=== PATIENT | male | born 1960 | race Native Hawaiian/Other Pacific Islander ===

== ENCOUNTER 2016-06-07 17:15 | Outpatient (CLI) | payer OTHER ==
[~2016-06-07 17:15] MED LIST: ASPIRIN LOW STR81 MG PO; LEVO0.1519 PO; LOSA50TA PO; NEURONTIN 100M100 MG PO; ROXICODONE15 M1 PO; SYNTHROID175 MCG PO; TRICOR145 M1 PO
[2016-06-07 17:43] LABS: PLATELET COUNT 270 K/uL (142-355)
[2016-06-07 18:25] LABS: POTASSIUM 4.1 mmol/L (3.6-5.2); SODIUM 137 mmol/L (136-145)
== END 2016-06-07 23:07 | disposition home or self-care (01) ==
LOC: LABW 17:15
PROVIDERS: Family Medicine
DX: R53.83 Other fatigue (principal); I10 Essential (primary) hypertension; E03.8 Other specified hypothyroidism; E55.9 Vitamin D deficiency, unspecified; R07.89 Other chest pain
CPT/HCPCS: 80053; 81000; 82306; 82607; 84403; 84443; 85027; 93005

== ENCOUNTER 2016-06-08 13:26 | Outpatient (CLI) | payer OTHER | END 2016-06-08 15:26 | disposition home or self-care (01) | LOC: CT 13:26 | DX: I26.99 Other pulmonary embolism without acute cor pulmonale (principal) | CPT/HCPCS: Q9963 ==

== ENCOUNTER 2016-06-22 11:18 | Outpatient (CLI) | payer OTHER | END 2016-06-22 19:22 | disposition home or self-care (01) | LOC: RESP 11:18 | DX: R05 Cough (principal) | CPT/HCPCS: 94640; 94664 ==

== ENCOUNTER 2016-07-07 07:57 | Outpatient (CLI) | payer OTHER | END 2016-07-07 19:10 | disposition home or self-care (01) | LOC: LAB 07:57 | DX: Z86.010 Personal history of colon polyps (principal) | CPT/HCPCS: 82272 ==

== ENCOUNTER 2016-07-27 12:38 | Outpatient (CLI) | payer OTHER | END 2016-07-27 13:38 | disposition home or self-care (01) | LOC: LABW 12:38 | DX: M19.90 Unspecified osteoarthritis, unspecified site (principal) | CPT/HCPCS: 36415; 85651; 86039; 86140; 86430 ==

== ENCOUNTER 2016-08-24 07:10 | Outpatient (CLI) | payer OTHER | END 2016-08-24 19:04 | disposition home or self-care (01) | LOC: NM 07:10 → RAD 07:10 → NM 08:30 | DX: I26.99 Other pulmonary embolism without acute cor pulmonale (principal); R91.1 Solitary pulmonary nodule | CPT/HCPCS: A9540; A9567 ==

== ENCOUNTER 2016-09-27 09:10 | Outpatient (CLI) | payer OTHER ==
[2016-09-27 09:39] LABS: PLATELET COUNT 273 K/uL (142-355)
== END 2016-09-27 19:25 | disposition home or self-care (01) ==
LOC: LABW 09:10
PROVIDERS: Family Medicine
DX: E03.8 Other specified hypothyroidism (principal); Z79.01 Long term (current) use of anticoagulants; Z51.81 Encounter for therapeutic drug level monitoring
CPT/HCPCS: 36415; 84443; 85027

== ENCOUNTER 2016-11-24 07:31 | Outpatient (CLI) | payer OTHER | END 2016-11-24 19:40 | disposition home or self-care (01) | LOC: LABW 07:31 | DX: I10 Essential (primary) hypertension (principal); Z13.89 Encounter for screening for other disorder | CPT/HCPCS: 36415; 80074; 81000 ==

== ENCOUNTER 2018-11-09 12:30 | Outpatient (CLI) | payer OTHER ==
[~2018-11-09 12:30] MED LIST changes: +ACYCLOVIR800 MG PO; +GABA300C2 PO; +LEVO-T125 MCG PO
== END 2018-11-09 23:06 | disposition home or self-care (01) ==
LOC: LABW 12:30
DX: J20.9 Acute bronchitis, unspecified (principal)

== ENCOUNTER 2018-11-10 08:22 | Outpatient (CLI) | payer OTHER ==
[2018-11-10 08:40] LABS: PLATELET COUNT 282 K/uL (142-355)
[2018-11-10 09:07] LABS: POTASSIUM 3.9 mmol/L (3.6-5.2)
== END 2018-11-10 23:40 | disposition home or self-care (01) ==
LOC: LAB 08:22
PROVIDERS: Family Medicine
DX: I10 Essential (primary) hypertension (principal); E03.9 Hypothyroidism, unspecified; E55.9 Vitamin D deficiency, unspecified; E53.8 Deficiency of other specified B group vitamins; E88.89 Other specified metabolic disorders; N40.0 Benign prostatic hyperplasia without lower urinary tract symptoms; E78.2 Mixed hyperlipidemia
CPT/HCPCS: 36415; 80053; 80061; 81000; 82306; 82607; 84153; 84403; 84443; 85027

== ENCOUNTER 2019-02-04 16:54 | Outpatient (CLI) | payer OTHER | END 2019-02-04 17:07 | disposition short-term general hospital (02) | LOC: AMB 16:54 | DX: R06.02 Shortness of breath (principal); R53.1 Weakness | CPT/HCPCS: A0425; A0427 ==

== ENCOUNTER 2019-02-04 17:11 | Emergency (ER) | payer OTHER ==
[~2019-02-04] VITALS: Ht 185.4 cm; Wt 98.4 kg
[2019-02-04 17:26] LABS: PLATELET COUNT 244 K/uL (142-355)
[2019-02-04 17:33] LABS: POTASSIUM 3.6 mmol/L (3.6-5.2); SODIUM 141 mmol/L (136-145)
[2019-02-04 17:46] LABS: PARTIAL THROMBOPLASTIN TIME 20.2 SECONDS (24.5-33.6)
[2019-02-04 20:35] VITALS: BP 141/83; TEMP 97.2
== END 2019-02-04 20:35 | disposition short-term general hospital (02) ==
LOC: ED 17:11
PROVIDERS: Hospitalist
DX: I26.99 Other pulmonary embolism without acute cor pulmonale (principal); Z86.711 Personal history of pulmonary embolism
CPT/HCPCS: 80053; 82550; 83880; 84484; 85027; 85379; 85610; 85730; 92977; 93005; 96372; 99285; J1650; Q9963

== ENCOUNTER 2019-02-19 06:51 | Outpatient (CLI) | payer OTHER ==
[2019-02-19 07:46] LABS: PLATELET COUNT 328 K/uL (142-355)
[2019-02-19 08:07] LABS: POTASSIUM 3.9 mmol/L (3.6-5.2)
== END 2019-02-19 20:20 | disposition home or self-care (01) ==
LOC: LABW 06:51
PROVIDERS: Family Medicine
DX: I26.99 Other pulmonary embolism without acute cor pulmonale (principal); E03.9 Hypothyroidism, unspecified
CPT/HCPCS: 36415; 80053; 84436; 84443; 84481; 85027

== ENCOUNTER 2019-02-28 07:10 | Outpatient (CLI) | payer OTHER | END 2019-02-28 21:35 | disposition home or self-care (01) | LOC: RESP 07:10 | DX: R06.02 Shortness of breath (principal) ==

== ENCOUNTER 2019-03-07 10:57 | Outpatient (CLI) | payer OTHER | END 2019-03-07 21:22 | disposition home or self-care (01) | LOC: US 10:57 | DX: I73.9 Peripheral vascular disease, unspecified (principal); M19.072 Primary osteoarthritis, left ankle and foot ==

== ENCOUNTER 2019-03-23 08:42 | Outpatient (CLI) | payer OTHER ==
[2019-03-23 09:14] LABS: POTASSIUM 4.5 mmol/L (3.6-5.2)
[2019-03-23 09:52] LABS: PLATELET COUNT 335 K/uL (142-355)
== END 2019-03-23 22:05 | disposition home or self-care (01) ==
LOC: LABW 08:42
PROVIDERS: Internal Medicine Hematology & Oncology
DX: Z12.11 Encounter for screening for malignant neoplasm of colon (principal)
CPT/HCPCS: 36415; 80053; 81291; 85027; 85379; 85610; 85730

== ENCOUNTER 2019-04-09 18:35 | Emergency (ER) | payer OTHER ==
[~2019-04-09] VITALS: Ht 185.4 cm; Wt 98.4 kg
[2019-04-09 19:14] LABS: PLATELET COUNT 331 K/uL (142-355)
[2019-04-09 19:33] LABS: POTASSIUM 3.6 mmol/L (3.6-5.2); SODIUM 141 mmol/L (136-145)
[2019-04-09 19:38] LABS: PARTIAL THROMBOPLASTIN TIME 24.2 SECONDS (24.5-33.6)
[2019-04-09 21:55] VITALS: BP 144/86; TEMP 98
== END 2019-04-09 21:55 | disposition home or self-care (01) ==
LOC: ED 18:35
PROVIDERS: Emergency Medicine
DX: R07.89 Other chest pain (principal)
CPT/HCPCS: 36415; 80053; 82550; 84484; 85027; 85610; 85730; 93005; 96374; 96375; 99284; J2270; J2405

== ENCOUNTER 2020-02-08 10:47 | Outpatient (CLI) | payer OTHER | END 2020-02-08 22:25 | disposition home or self-care (01) | LOC: RAD 10:47 | DX: I77.810 Thoracic aortic ectasia (principal) ==